=== PATIENT | female | born 1995 | race Caucasian/White ===

== ENCOUNTER 2020-04-02 07:30 | Emergency (ER) | payer OTHER, SELFPAY ==
[2020-04-02 07:40] VITALS: BP 132/73; PULSE 84; RESP 16; TEMP 37; O2SAT 100; BMI 31.4
[2020-04-02 08:10] LABS: COVID19 -Nasal RAPID Negative (Negative)
--- NOTE | 2020-04-02 08:25 | ED.URI ---
HPI - URI/Sore Throat General Chief Complaint: Upper Respiratory Symptoms Stated Complaint: cough,sore throat,runny nose/eyes Time Seen by Provider: 04/02/20 07:31 Source: patient Mode of arrival: Ambulatory Limitations: no limitations History of Present Illness HPI Narrative: Patient is a 24-year-old female that has had 1-2 days of sinus congestion, cough, sore throat, ear pain. She has been doing [id number] DayQuil and NyQuil and TheraFlu with only minimal relief. She does have a history of allergies and has Claritin home but has not been taking this. She does work in the early childhood teacher assistant industry and is here for a coronavirus test. Review of Systems Constitutional Constitutional: Denies fever(s) Eyes Eyes: Denies change in vision ENT Ears, Nose, Mouth, and Throat: Denies dizziness, Reports post nasal drip, Reports sinus pressure and Reports sore throat Cardiovascular Cardiovascular: Denies dyspnea Respiratory Respiratory: Reports cough and Denies dyspnea Integumentary/Breasts Skin/Breast: Denies lesions and Denies rash Neurologic Neurologic: Denies behavioral changes and Denies dizziness Psychiatric Psychiatric: Denies behavioral changes Hematologic/Lymphatic Hematologic/Lymphatic: Denies easy bleeding and Denies easy bruising Patient History Medical History Seasonal allergies (Acute) Social History Smoking Status: Never smoker Smoking Status: Never smoker alcohol intake frequency: 0-2 drinks per day Substance Use Type: does not use Exam Initial Vital Signs Initial Vital Signs: Vital Signs Temperature 98.6 F 04/02/20 07:40 Pulse Rate 84 04/02/20 07:40 Respiratory Rate 16 04/02/20 07:40 Blood Pressure 132/73 04/02/20 07:40 Pulse Oximetry 100 04/02/20 07:40 Const General: cooperative, comfortable and well developed Limitations: mental status not altered HENMT Head: normal to inspection and normocephalic Ears: TM's normal bilaterally Nose: external nose normal Face and sinus: normal facial exam Mouth: oral mucosae normal Throat: posterior oropharynx normal Resp Effort & Inspection: normal respiratory effort Auscultation: clear to auscultation bilaterally Cardio Rate: regular rate Rhythm: regular rhythm Skin Lesions: no lesions Rashes: no rashes Neuro General: patient alert and patient awake Extrem General: normal to inspection and capillary refill normal Psych Appearance: grossly normal and well kempt Course Orders Ordered: ED Orders 04/02/20 07:49 COVID19 -ED/INPAT/OR/L&D Stat Vital Signs Vital signs: Vital Signs - 8 hr 04/02/20 07:40 Temperature 98.6 F Pulse Rate 84 Respiratory Rate 16 Blood Pressure 132/73 Pulse Oximetry 100 MDM - URI/Sore Throat Lab Data Attestation: I reviewed the patient's lab results. Labs: Lab Results 04/02/20 Range/Units 07:49 COVID-19 PCR Negative (Negative) MDM Narrative Medical decision making narrative: Patient has a history and physical exam consistent with a upper respiratory infection. Her coronavirus test was negative. She was given a copy of this to take to her work. We discussed the use of antihistamine/decongestant. No indication for antibiotics. She was given return precautions. She expressed understanding and agreement. Discharge Plan Departure Patient Disposition: Home Clinical Impression: Upper respiratory infection Instructions: DI for Viral Upper Respiratory Infection -- Adult Activity Restrictions/Additional Instructions: Your coronavirus test was negative. I do recommend that you continue to wear your mask and wash your hands. I also recommend that you start taking your Claritin. You can also consider taking other nasal spray such as Flonase or Nasonex. You can purchase these [id number]. Contact her primary provider for follow-up. Return to the emergency department for any new or worsening symptoms.
== END 2020-04-02 08:36 | disposition home or self-care (01) ==
PROVIDERS: Emergency Provider Emergency Medicine; Referring Provider Emergency Medicine
DX: J02.9 Acute pharyngitis, unspecified (principal)
CPT/HCPCS: 87635; 99281; 99282

== ENCOUNTER → 2023-01-19 10:45 | Outpatient (CLI) | payer OTHER, SELFPAY ==
--- NOTE | 2023-01-19 10:49 | DI.RAD.S_ITS ---
PROCEDURE: XR WRIST RT MIN 3V INDICATIONS: right wrist pain TECHNIQUE: 4 views of the wrist were acquired. COMPARISON: None. FINDINGS: Bones: No fractures or dislocations. No suspicious bony lesions. Soft tissues: No suspicious soft tissue calcifications. IMPRESSION: Normal right wrist radiographs Approved by: Franklin Jaquez M.D. on 01/19/2023 at 18:42
== END ==
PROVIDERS: PCP Internal Medicine; Referring Provider Internal Medicine; Visit Provider Internal Medicine
DX: M25.531 Pain in right wrist (principal)
CPT/HCPCS: 73110